=== PATIENT | female | born 1980 | race Caucasian/White ===

== ENCOUNTER → 2021-10-20 12:41 | Outpatient (CLI) | payer OTHER, MEDICAID, SELFPAY ==
[2021-10-20 22:04] LABS: COVID-19 CEPHEID PCR (VTM/NP) Negative (Negative)
== END ==
PROVIDERS: PCP Physician Assistant; Visit Provider Physician Assistant
DX: Z01.812 Encounter for preprocedural laboratory examination (principal); Z20.822 Contact with and (suspected) exposure to COVID-19
CPT/HCPCS: C9803; U0003; U0005